=== PATIENT | female | born 1980 | race Caucasian/White ===

== ENCOUNTER 2017-09-29 09:21 | Outpatient (CLI) | payer BC | END 2017-09-29 09:22 | disposition home or self-care (01) | LOC: BICRAD 09:21 | PROVIDERS: ATTEND Chiropractor | DX: M54.2 Cervicalgia (principal); R20.0 Anesthesia of skin; R20.2 Paresthesia of skin; M47.892 Other spondylosis, cervical region | CPT/HCPCS: 72040 ==

== ENCOUNTER 2022-06-13 14:46 | Outpatient (CLI) | payer BC | END 2022-06-13 14:47 | disposition home or self-care (01) | LOC: SCSMRI 14:46 | PROVIDERS: ATTEND Orthopaedic Surgery Hand Surgery | DX: S63.591A Other specified sprain of right wrist, initial encounter (principal) ==